=== PATIENT | male | born 1985 ===

== ENCOUNTER 2022-02-12 05:34 | Outpatient (CLI) | payer SELFPAY ==
[~2022-02-12] VITALS: Ht 182.9 cm; Wt 139.0 kg
== END 2022-02-13 15:25 | disposition home or self-care (01) ==
LOC: PREOP 05:34
PROVIDERS: ATTEND Surgery
DX: Z01.818 Encounter for other preprocedural examination (principal); D17.9 Benign lipomatous neoplasm, unspecified